=== PATIENT | female | born 1965 | race Caucasian/White ===

== ENCOUNTER 2020-11-01 07:45 | Emergency (ER) | payer BC ==
[2020-11-01 07:56] VITALS: RESP 18
[2020-11-01 08:32] LABS: Basophils # (A) 0.1 k/uL (0-0.2); Basophils % (A) 1 %; Eosinophils # (A) 1.1 k/uL (0-0.7); Eosinophils % (A) 13 %; HCT 37.8 % (34.0-46.0); HGB 12.8 gm/dL (11.4-16.0); Lymphocytes # (A) 1.4 k/uL (1.0-4.8); Lymphocytes % (A) 16 %; MCHC 33.8 g/dL (31.0-37.0); MCV 85.6 fL (80.0-100.0); Mean Platelet Volume 7.2; Monocytes # (A) 0.4 k/uL (0-1.0); Monocytes % (A) 4 %; Neutrophils # (A) 5.7 k/uL (1.3-7.7); Neutrophils % (A) 64 %; Platelet Count 445 k/uL (150-450); RBC 4.41 m/uL (3.80-5.40); RDW 13.3 % (11.5-15.5); WBC 8.9 k/uL (3.8-10.6)
--- NOTE | 2020-11-01 08:37 | XR ---
EXAMINATION TYPE: XR chest 2V DATE OF EXAM: 11/01/2020 COMPARISON: NONE HISTORY: Productive cough. TECHNIQUE: Frontal and lateral views of the chest are obtained. FINDINGS: There is elevated left hemidiaphragm with irregular left hilar masslike consolidation exte nding anteriorly. Silhouetting left heart border noted. Right lung is clear. No pleural effusion or p neumothorax seen bilaterally. The cardiac silhouette size is likely within normal limits. Surgical clips throughout the left breast with asymmetric diminished size to left breast shadow noted. The oss eous structures are intact. IMPRESSION: As above. Possible left hilar pneumonic consolidation but underlying neoplasm needs to b e considered. Left-sided volume loss noted. Follow-up contrast chest CT is likely warranted.
--- NOTE | 2020-11-01 08:38 | XR ---
EXAMINATION TYPE: XR KUB DATE OF EXAM: 11/01/2020 8:31 AM CLINICAL HISTORY: Left lower quadrant and flank pain. TECHNIQUE: Two Upright KUB images of the abdomen are obtained. COMPARISON: None. FINDINGS: Gas is seen in nondistended stomach bubble. Scattered gas is seen in non-distended small umair wel loops. Gas and fecal material is seen in non-distended colon. There is no visceromegaly, pneumope ritoneum, or abnormal calcification appreciated. The lung bases are clear and the osseous structures are intact. IMPRESSION: Overall nonobstructive bowel gas pattern.
--- NOTE | 2020-11-01 08:41 | ED ---
General Adult HPI - General Chief complaint: Abdominal Pain Stated complaint: Abd pain Time Seen by Provider: 11/01/20 07:59 Source: patient, RN notes reviewed, old records reviewed Mode of arrival: ambulatory Limitations: no limitations - History of Present Illness Initial comments: 55-year-old female presenting for evaluation of left-sided flank and abdominal pain which is been present for approximately one month. Pain is constant in nature. Not associated with dysuria or hematuria. No change in bowel habits. No rectal bleeding. Pain does appear to be worse with movement. No fevers. Additionally patient quit smoking approximately one month ago and has had increased cough since that time. She does not have a primary care physician and was instructed to present to the emergency department for evaluation if symptoms persisted. She has had symptoms for at least one month. - Related Data Home Medications Medication Instructions Recorded Confirmed No Known Home Medications 11/01/20 11/01/20 Allergies Allergy/AdvReac Type Severity Reaction Status Date / Time codeine AdvReac Unknown Verified 11/01/20 09:48 Childhood Review of Systems ROS Statement: Those systems with pertinent positive or pertinent negative responses have been documented in the HPI. ROS Other: All systems not noted in ROS Statement are negative. Past Medical History Past Medical History: Cancer Additional Past Medical History / Comment(s): breast CA History of Any Multi-Drug Resistant Organisms: None Reported Past Surgical History: Breast Surgery Additional Past Surgical History / Comment(s): L lumpectomy Past Psychological History: No Psychological Hx Reported Smoking Status: Former smoker Past Alcohol Use History: None Reported Past Drug Use History: None Reported General Exam Limitations: no limitations General appearance: alert, in no apparent distress Head exam: Present: atraumatic, normocephalic Eye exam: Present: normal appearance, PERRL ENT exam: Present: normal exam Neck exam: Present: normal inspection Respiratory exam: Present: normal lung sounds bilaterally, rhonchi (Scattered rhonchi). Absent: respiratory distress, wheezes Cardiovascular Exam: Present: regular rate, normal rhythm GI/Abdominal exam: Present: soft. Absent: distended, tenderness, guarding, rebound, rigid Extremities exam: Present: normal inspection, normal capillary refill. Absent: pedal edema Back exam: Present: normal inspection, full ROM. Absent: CVA tenderness (R), CVA tenderness (L), vertebral tenderness Neurological exam: Present: alert, oriented X3, CN II-XII intact. Absent: motor sensory deficit Psychiatric exam: Present: normal affect, normal mood Skin exam: Present: warm, dry, intact. Absent: cyanosis, diaphoretic Course Vital Signs 11/01/20 07:51 Temperature 98.3 F Pulse Rate 80 Respiratory 18 Rate Blood Pressure 133/94 O2 Sat by Pulse 100 Oximetry Medical Decision Making - Medical Decision Making 55-year-old female with 2 complaints, left lower abdominal pain, and increased cough over the past one month. Workup reveals normal CBC, normal CMP, negative urinalysis. Patient did request chest x-ray which is performed for increased cough. This does show concerning left hilar mass. CT with contrast has been performed which confirms this mass and associated atelectasis. Measuring 3.2 x 2.1. I did discuss case with Dr. Estuardo reyna for pulmonology. He rec ommends close outpatient follow-up. Patient had previous breast cancer and did follow with oncology at that time. She is given referral to primary care, pulmonology, and oncology. She will return with any worsening or changing symptoms. - Lab Data Result diagrams: 11/01/20 08:14 11/01/20 08:14 Lab Results 11/01/20 11/01/20 11/01/20 Range/Units 08:14 08:14 08:14 WBC 8.9 (3.8-10.6) k/uL RBC 4.41 (3.80-5.40) m/uL Hgb 12.8 (11.4-16.0) gm/dL Hct 37.8 (34.0-46.0) % MCV 85.6 (80.0-100.0) fL MCH 29.0 (25.0-35.0) pg MCHC 33.8 (31.0-37.0) g/dL RDW 13.3 (11.5-15.5) % Plt Count 445 (150-450) k/uL MPV 7.2 Neutrophils % 64 % Lymphocytes % 16 % Monocytes % 4 % Eosinophils % 13 % Basophils % 1 % Neutrophils # 5.7 (1.3-7.7) k/uL Lymphocytes # 1.4 (1.0-4.8) k/uL Monocytes # 0.4 (0-1.0) k/uL Eosinophils # 1.1 H (0-0.7) k/uL Basophils # 0.1 (0-0.2) k/uL Sodium 138 (137-145) mmol/L Potassium 4.1 (3.5-5.1) mmol/L Chloride 104 (98-107) mmol/L Carbon Dioxide 25 (22-30) mmol/L Anion Gap 9 mmol/L BUN 12 (7-17) mg/dL Creatinine 0.81 (0.52-1.04) mg/dL Est GFR (CKD-EPI)AfAm >90 (>60 ml/min/1.73 sqM) Est GFR (CKD-EPI)NonAf 81 (>60 ml/min/1.73 sqM) Glucose 119 H (74-99) mg/dL Calcium 9.9 (8.4-10.2) mg/dL Total Bilirubin 0.6 (0.2-1.3) mg/dL AST 22 (14-36) U/L ALT 20 (4-34) U/L Alkaline Phosphatase 87 (38-126) U/L Total Protein 7.9 (6.3-8.2) g/dL Albumin 4.3 (3.5-5.0) g/dL Urine Color Light Yellow Urine Appearance Clear (Clear) Urine pH 6.0 (5.0-8.0) Ur Specific [place] 1.004 (1.001-1.035) Urine Protein Negative (Negative) Urine Glucose (UA) Negative (Negative) Urine Ketones Negative (Negative) Urine Blood Negative (Negative) Urine Nitrite Negative (Negative) Urine Bilirubin Negative (Negative) Urine Urobilinogen <2.0 (<2.0) mg/dL Ur Leukocyte Esterase Small H (Negative) Urine WBC 5 (0-5) /hpf Ur Squamous Epith Cells 1 (0-4) /hpf Disposition Clinical Impression: Lung mass Disposition: HOME SELF-CARE Condition: Fair Instructions (If sedation given, give patient instructions): Pulmonary Nodules (ED), Lung Cancer (DC) Additional Instructions: Your CAT scan of the chest did show a mass in the lung. This requires close outpatient follow-up. Please call the [facility] today for further evaluation. Is patient prescribed a controlled substance at d/c from ED?: No Referrals: None,Stated [Primary Care Provider] - 1-2 days Eben Marte MD [STAFF PHYSICIAN] - 1-2 days George Elliott MD [STAFF PHYSICIAN] - 1-2 days Jose Daniel Jack MD [STAFF PHYSICIAN] - 1-2 days Time of Disposition: 10:05
[2020-11-01 08:44] LABS: Appearance,Urine Clear (Clear); Bilirubin,Urine Negative (Negative); Blood,Urine Negative (Negative); Color,Urine Light Yellow; Glucose,Urine (UA) Negative (Negative); Ketones,Urine Negative (Negative); Leukocyte Esterase,Urine Small (Negative); Nitrite,Urine Negative (Negative); Protein,Urine Negative (Negative); Specific Gravity,Urine 1.004 (1.001-1.035); Squamous Epithelial Cell,Urine 1 /hpf (0-4); Urobilinogen,Urine <2.0 mg/dL (<2.0); WBC,Urine 5 /hpf (0-5)
[2020-11-01 08:49] LABS: ALT 20 U/L (4-34); AST 22 U/L (14-36); African American GFR (CKD) >90 (>60 ml/min/1.73 sqM); Albumin 4.3 g/dL (3.5-5.0); Alkaline Phosphatase 87 U/L (38-126); Anion Gap 9 mmol/L; Blood Urea Nitrogen 12 mg/dL (7-17); Calcium 9.9 mg/dL (8.4-10.2); Carbon Dioxide 25 mmol/L (22-30); Chloride 104 mmol/L (98-107); Glucose 119 mg/dL (74-99); Non-African American GFR(CKD) 81 (>60 ml/min/1.73 sqM); Potassium 4.1 mmol/L (3.5-5.1); Sodium 138 mmol/L (137-145); Total Bilirubin 0.6 mg/dL (0.2-1.3); Total Protein 7.9 g/dL (6.3-8.2)
[2020-11-01] MEDS ORDERED: RX INFO: IV CONTRAST WAS GIVEN 1 EACH MISC MISCELLANE PRN (08:52)
--- NOTE | 2020-11-01 09:26 | CT ---
EXAMINATION TYPE: CT chest w con DATE OF EXAM: 11/01/2020 COMPARISON: Chest x-ray earlier today. HISTORY: pneumonia vs mass, history of breast CA CT DLP: 332.3 mGycm. Automated Exposure Control for Dose Reduction was Utilized. TECHNIQUE: CT scan of the thorax is performed following with IV Contrast, patient injected with 100 mL of Isovue 300. FINDINGS: LUNGS: Corresponding to x-ray there is heterogeneous masslike consolidation from the anterior hilar r egion extending anteriorly and superiorly with left-sided volume loss, there is abrupt lingular bronc hial occlusion noted axial image 25 and coronal image 55. Suspect central obstructing 3.2 x 2.1 cm ma ss axial image 24 with post obstructive atelectasis as there are some vessels noted in the periphery from this area. Is right lung is predominantly clear and hyperexpanded with mild atelectatic change o r pleural thickening medial anterior base. No pleural effusion or pneumothorax is seen bilaterally. The tracheobronchial tree is patent. MEDIASTINUM: There are no greater than 1 cm hilar or mediastinal lymph nodes clearly seen. No cardi omegaly or pericardial effusion is seen. OTHER: Left axillary surgical clips along with medial left breast clips are present. IMPRESSION: As above. Probable neoplasm. Consider PET CT and/or bronchoscopy for tissue confirmatio n.
[2020-11-01 10:07] VITALS: BP 126/72; PULSE 74; TEMP 98.1
== END 2020-11-01 10:14 | disposition home or self-care (01) ==
LOC: EC 07:45
DX: R91.8 Other nonspecific abnormal finding of lung field (principal); R10.32 Left lower quadrant pain; R05 Cough; Z87.891 Personal history of nicotine dependence; Z85.3 Personal history of malignant neoplasm of breast; Z88.5 Allergy status to narcotic agent
CPT/HCPCS: 36415; 80053; 85025; 81001; 71046; 74018; 71260; 99285; Q9967

== ENCOUNTER 2020-11-02 10:48 | Day surgery (SDC) | payer BC ==
[2020-11-02] MEDS ORDERED: LACTATED RINGERS 1,000 ML IV ONE (11:33)
[2020-11-02] MEDS ORDERED: LIDOCAINE 1% (10MG/ML) FOR IV START INTRADERMA ONE (11:34)
[2020-11-02] MEDS ORDERED: ATROPINE SULFATE 0.4 MG/ML 1 ML VIAL ONE ×2 (11:42)
[2020-11-02] MEDS ORDERED: ATROPINE SULFATE 0.4 MG/ML 1 ML VIAL IM ONE (11:47)
[2020-11-02] MEDS ORDERED: PROPOFOL 10 MG/ML 20 ML VIAL IV ONE (12:28)
[2020-11-02] MEDS ORDERED: SUCCINYLCHOLINE CHLORIDE 100 MG/5 ML SYR IV ONE (12:28)
[2020-11-02 13:10] VITALS: TEMP 97.5
[2020-11-02 13:21] VITALS: RESP 16
[2020-11-02 14:14] VITALS: BP 104/71; PULSE 93
--- NOTE | 2020-11-02 15:00 | XR ---
EXAMINATION TYPE: XR chest 1V portable DATE OF EXAM: 11/02/2020 COMPARISON: 11/01/2020 INDICATION: Post left lung biopsy TECHNIQUE: Single frontal view of the chest is obtained. FINDINGS: The heart size is normal. The pulmonary vasculature is normal. Left perihilar mass is evident. Surgical clips are within the left axillary region. No pneumothorax i s evident. IMPRESSION: 1. No pneumothorax post biopsy. 2. Left perihilar mass
--- NOTE | 2020-11-02 16:33 | OP ---
OPERATIVE REPORT PULMONARY/CRITICAL CARE PROCEDURE NOTE: PROCEDURE: Bronchoscopy, airway examination, therapeutic lavage, BAL, brushes, left upper lobe, endobronchial biopsies, left upper lobe, and washes, left upper lobe. PREOPERATIVE DIAGNOSIS: Rule out lung cancer. POSTOPERATIVE DIAGNOSIS: Rule out lung cancer. ANESTHESIA PROVIDED: General anesthesia. The patient's procedure was done in room #1. There was informed consent and universal timeout. WEDDING PHOTOGRAPHER: Dr. Trinh. PROCEDURE DESCRIPTION: After the patient was adequately sedated and fully anesthetized, the bronchoscope was inserted through the bronchoscope adapter connected to the endotracheal tube. I did a quick evaluation of the right lung. Right upper lobe and its 3 segments, right middle lobe and its 2 segments and the right lower lobe and its 5 segments were all found to be normal. On the left side, the left lower lobe was normal. There was a large tumor obstructing the left upper lobe bronchus. This is when we did sampling. Initially we did biopsies. They were endobronchial biopsies. I did probably 7 or 8 biopsies of this area. Then we did washes and brushes of this area as well. Everything was under direct visualization. There was minimal bleeding. Before the bronchoscope was withdrawn I ensured that there was hemostasis. The patient tolerated the procedure well and was stable throughout the procedure. There was no immediate complication. The patient will be recovered. I will speak to the patient's . MMODL / IJN: [id number] /
[2020-11-02 20:17] LABS: Appearance,BF Bloody; Color,BF Red; Nucleated Cells, Body Fluid 111 /uL; RBC, Body Fluid 200000 /uL
[2020-11-02 20:19] LABS: Mononuclear WBC,Body Fluid 6 %; Polynuclear WBC,Body Fluid 93 %; Total Cells Counted,Body Fluid 100
[2020-11-03] MEDS ORDERED: LIDOCAINE 2% (PF) 20 MG/ML 5 ML VIAL INHALATION ONE (05:00)
[2020-11-03] MEDS ORDERED: ATROPINE SULFATE 0.4 MG/ML 1 ML VIAL IM ONE (05:00)
[2020-11-03] MEDS ORDERED: ALBUTEROL NEB (CONC) 2.5 MG/0.5 ML INHALATION ONE (05:00)
[2020-11-03] MEDS ORDERED: SODIUM CHLORIDE 0.9% 1,000 ML IV SCH (06:00)
[2020-11-03] MEDS ORDERED: LIDOCAINE VISCOUS 300 MG/15 ML CUP MUCOUS MEM ONE (06:00)
== END 2020-11-02 15:09 | disposition home or self-care (01) ==
LOC: ORWHC2ENDO 10:48
PROVIDERS: ATTEND Internal Medicine Critical Care Medicine
DX: C78.02 Secondary malignant neoplasm of left lung (principal); Z85.3 Personal history of malignant neoplasm of breast; Z88.5 Allergy status to narcotic agent; Z87.891 Personal history of nicotine dependence; Z92.3 Personal history of irradiation; Z82.49 Family history of ischemic heart disease and other diseases of the circulatory system
CPT/HCPCS: 88104; 88108; 88305; 89050; 88342; 87252; 88341; 87070; 87205; 87116; 87102; 87206; 71045; 31625; 31623; 31624; J0461; J0330; J2704; 87496; 87498; 87502; 87529; 87634; 87798

== ENCOUNTER → 2020-11-04 | Outpatient (CLI) | payer BC ==
--- NOTE | 2020-11-08 14:39 | PE ---
Nuclear medicine PET/CT HISTORY: R 91.1 solitary pulmonary nodule, initial Patient received 12.2 mCi F-18 FDG intravenously and delayed scanning was performed from the skull ba se to the mid thighs. Localization and attenuation correction CT scan was performed. Correlation to chest CT 11/01/2020 Chest and neck: The abnormal soft tissue density extending from the left hilum anteriorly in the left upper lobe is again seen, there is associated hypermetabolic uptake predominantly in the central asp ect adjacent to the left mainstem bronchus anterior margin, an oval area of uptake is present, SUV 12 .3. Postobstructive changes are likely present with mild uptake. There is no pleural or pericardial e ffusion. Surgical clips are present in left axilla, medial left breast region. Subpleural nodule nishant ures only 2 to 3 mm on axial image 82 in the left upper lobe. There is no axillary adenopathy, no cer vical or supraclavicular adenopathy. ABDOMEN: There is no adrenal mass or retroperitoneal adenopathy. No evident liver mass. Colonic inter position noted anterior to the liver. There is no suspicious uptake. There is no ascites. No pelvic a denopathy. Osseous structures show lytic lesion involving the third lumbar vertebral body anteriorly. There is a ssociated uptake present, SUV 14.4. 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
== END | disposition home or self-care (01) ==
LOC: RADPETMAIN 07:25
PROVIDERS: ATTEND Internal Medicine Critical Care Medicine
DX: C79.51 Secondary malignant neoplasm of bone (principal); R91.1 Solitary pulmonary nodule
CPT/HCPCS: 78815; A9552

== ENCOUNTER → 2020-11-22 | Outpatient (CLI) | payer BC ==
--- NOTE | 2020-11-23 02:36 | MR ---
EXAMINATION TYPE: MR lumbar spine wo/w con DATE OF EXAM: 11/22/2020 COMPARISON: PET CT scan 11/04/2020 HISTORY: LBP, BLE radic. Hx metastatic lung cancer. CONTRAST: Standard multiplanar, multisequence MRI departmental protocol utilizing 7.5 mL intravenous Gadavist g adolinium contrast. The lumbar vertebra have normal alignment. There is abnormal decreased signal on the T1 images throug hout the L3 vertebral body. There is some expansion of the body and some diffuse pathologic enhanceme nt with the contrast. There is posterior expansion into the spinal canal in the midline and towards t he left side with some narrowing of the lateral recess. Abnormal enhancement extends into the left si de pedicle of L3. There is slight biconcave compression deformity of the L3 vertebral body. The disc spaces overall are fairly well-maintained. IMPRESSION: Expansile enhancing destructive lesion involving the L3 vertebral body consistent with tumor that is probably expanded compared to the PET CT scan of 11/04/2020.
== END | disposition home or self-care (01) ==
LOC: RADMRIMAIN 15:50
PROVIDERS: ATTEND Radiology Radiation Oncology
DX: M48.8X6 Other specified spondylopathies, lumbar region (principal); C79.51 Secondary malignant neoplasm of bone; C34.12 Malignant neoplasm of upper lobe, left bronchus or lung; Z85.3 Personal history of malignant neoplasm of breast
CPT/HCPCS: 72158; A9585

== ENCOUNTER → 2020-11-23 | Outpatient (CLI) | payer BC ==
--- NOTE | 2020-11-23 17:27 | MR ---
EXAMINATION TYPE: MR brain wo/w con DATE OF EXAM: 11/23/2020 COMPARISON: None HISTORY: Hx metastatic lung cancer and malignant neoplasm of bone CONTRAST: Performed utilizing 7 mL intravenous Gadavist gadolinium contrast. TECHNIQUE: Multiplanar, multiecho imaging on a 3.0 Mayr magnet is performed through the brain. Stud y is performed within 24 hours of arrival to the hospital. The craniovertebral junction is normal. The pituitary is normal. Diffusion-weighted imaging is performed. No abnormal hyperintensity is present to suggest an acute i ntracranial infarct or acute ischemic change. There are multiple scattered punctate hyperintensities throughout the deep white matter including sub cortical, periventricular, brainstem. Chronic white matter ischemic changes most likely within the di fferential. Other etiologies could be considered. Ventricles and sulci are appropriate for the patient age. No suspicious enhancement is identified to suggest metastatic disease. IMPRESSIONS: 1. No suspicious abnormality to suggest metastatic neoplasm. 2. Multiple punctate white matter changes, most likely on the basis of chronic white matter ischemic change.
== END | disposition home or self-care (01) ==
LOC: RADMRIMAIN 15:51
PROVIDERS: ATTEND Radiology Radiation Oncology
DX: C34.12 Malignant neoplasm of upper lobe, left bronchus or lung (principal); C79.51 Secondary malignant neoplasm of bone; R90.89 Other abnormal findings on diagnostic imaging of central nervous system; Z85.3 Personal history of malignant neoplasm of breast
CPT/HCPCS: 70553; A9585

== ENCOUNTER → 2021-02-09 | Outpatient (CLI) | payer BC ==
--- NOTE | 2021-02-09 12:40 | MR ---
EXAMINATION TYPE: MR lumbar spine wo/w con DATE OF EXAM: 02/09/2021 COMPARISON: 11/22/2020 HISTORY: Back pain TECHNIQUE: T1 and T2 axial and sagittal images of the lumbar spine are submitted. FINDINGS: There is no abnormal signal seen within the visualized spinal cord or paraspinal soft tissu es. At L1-2 there is no disc herniation or canal stenosis. Mild broad-based central disc bulging. No fora mary encroachment. No Canal stenosis. At L2-3 there is there is progression of a compression fracture which is now completely resulting in percent retropulsion into reduction in diameter spinal canal greater on the left. There is left-sided foraminal encroachment. At L3-4 there is diffuse disc bulging and hypertrophic change of the facets and ligamentum flavum. Mo derate compression of the thecal sac and canal stenosis with bilateral foraminal encroachment greater on the left. At L4-5 there is degenerative disc disease with more advanced facet arthropathy and ligamentum flavum hypertrophy. Neural foramina remain patent. No Canal stenosis. At L5-S1 there is facet arthropathy with severe degenerative disc disease discogenic marrow changes. No canal stenosis or foraminal encroachment. No focal herniation. IMPRESSION: 1. There is progression of the fracture of L3 which is now a complete compression fracture with appro ximately 50-60% retropulsion greater paracentrally to the left resulting in canal stenosis L2-L3 and significant foraminal encroachment with likely compression of the left-sided exiting nerve root. Abno rmal marrow signal could been the basis of progressive recent compression fracture. Pathologic fractu re not excluded. 2. Disc bulging and foraminal encroachment with canal stenosis and facet arthropathy L3-L4 at least p artially secondary to the compression fracture in association with hypertrophic changes and disc bulg ing.
== END | disposition home or self-care (01) ==
LOC: RADMRIMAIN 11:03
PROVIDERS: ATTEND Internal Medicine Hematology & Oncology
DX: M48.061 Spinal stenosis, lumbar region without neurogenic claudication (principal); M51.26 Other intervertebral disc displacement, lumbar region; M47.816 Spondylosis without myelopathy or radiculopathy, lumbar region; S32.038A Other fracture of third lumbar vertebra, initial encounter for closed fracture; M53.86 Other specified dorsopathies, lumbar region; C34.12 Malignant neoplasm of upper lobe, left bronchus or lung
CPT/HCPCS: 72158; A9585

== ENCOUNTER → 2021-02-19 | Outpatient (CLI) | payer BC ==
[2021-02-19 09:16] LABS: African American GFR (CKD) >90 (>60 ml/min/1.73 sqM); Blood Urea Nitrogen 13 mg/dL (7-17); Non-African American GFR(CKD) >90 (>60 ml/min/1.73 sqM)
--- NOTE | 2021-02-19 10:08 | CT ---
EXAMINATION TYPE: CT chest w con DATE OF EXAM: 02/19/2021 COMPARISON: 11/01/2020 HISTORY: Lung CA CT DLP: 222.2 mGycm Automated exposure control for dose reduction was used. CONTRAST: CT scan of the chest is performed with IV Contrast, patient injected with 100 mL of Isovue 300. FINDINGS: LUNGS: Left suprahilar mass persists and measures 1.7 x 2.0 cm versus 3.2 x 2.1 cm previously. Post o bstructive volume loss and/or pneumonia persists although is much improved relative to the prior exam ination. New areas however of groundglass infiltrate are seen throughout both lung alejandra. MEDIASTINUM: There are no greater than 1 cm hilar or mediastinal lymph nodes. No pericardial effusi on is seen. Thoracic aorta is of normal caliber. The heart is not enlarged. Solid right adrenal nodu le redemonstrated. UPPER ABDOMEN: No significant abnormality appreciated. OTHER: No additional significant abnormality is seen. IMPRESSION: 1. Left suprahilar mass persists although is smaller in size. Post obstructive volume loss and/or pne umonia persists left upper lobe although is much improved relative to prior examination. 2. New areas of groundglass infiltrate throughout both lung alejandra may reflect underlying pneumonia o r Covid 19 pneumonia. Correlate clinically.
== END | disposition home or self-care (01) ==
LOC: RADCTMAIN 08:27
PROVIDERS: ATTEND Internal Medicine Hematology & Oncology
DX: C34.12 Malignant neoplasm of upper lobe, left bronchus or lung (principal); R91.8 Other nonspecific abnormal finding of lung field
CPT/HCPCS: 82565; 84520; 71260; 36415; Q9967

== ENCOUNTER 2021-05-18 21:03 | Inpatient (IN) | payer BC ==
--- NOTE | 2021-05-18 21:16 | ED ---
Lower Extremity Injury HPI - General Stated Complaint: Rt Femur Injury Time Seen by Provider: 05/18/21 21:05 Source: patient, EMS Mode of arrival: EMS Limitations: no limitations - History of Present Illness Initial Comments: 's patient is a 56-year-old woman who presents to be evaluated for right leg injury. The patient was at home and then attempted to go up one step from one room into another. She states she felt a pop and then was not able to bear any weight on her right leg and fell. On EMS arrival there appeared to be deformity to the right femur. The did give analgesia on the scene. Patient had a total of 200 g of fentanyl given. They placed the patient's right leg and traction splint. Patient transported here. On arrival she declines further analgesia. She denies any other injury. She did not strike her head or neck. No loss of consciousness. No chest, back, abdomen or other extremity pains. The patient does give history of previous lung cancer (Dx in November) with known bony metastases to the spine. She had completed chemotherapy followed by radiation therapy. MD Complaint: thigh injury -: minutes(s) Injury: Thigh: Right Type of Injury: other Place: home Severity: severe Improves With: immobilization Worsens With: weight bearing Context: fall Associated Symptoms: snap/pop sensation Treatments Prior to Arrival: splint - Related Data Home Medications Medication Instructions Recorded Confirmed Docusate [Colace] 100 mg PO DAILY 05/18/21 05/18/21 HYDROcodone/APAP 7.5-325MG [[place] 1 tab PO BID PRN 05/18/21 05/18/21 7.5-325] Previous Rx's Medication Instructions Recorded Aspirin 325 mg PO BID #60 tab 05/20/21 HYDROcodone/APAP 10-325MG [[place] 1 each PO Q6H PRN #28 tab 05/20/21 10] Allergies Allergy/AdvReac Type Severity Reaction Status Date / Time codeine AdvReac Unknown Verified 05/18/21 21:43 Childhood Review of Systems ROS Statement: Those systems with pertinent positive or pertinent negative responses have been documented in the HPI. ROS Other: All systems not noted in ROS Statement are negative. Constitutional: Denies: fever, chills, weakness Respiratory: Denies: cough, dyspnea Cardiovascular: Denies: chest pain, syncope Gastrointestinal: Denies: abdominal pain, nausea Genitourinary: Denies: dysuria, hematuria Musculoskeletal: Reports: as per HPI. Denies: back pain, arthralgia Skin: Denies: rash, lesions Neurological: Denies: headache, weakness Hematological/Lymphatic: Denies: easy bleeding Past Medical History Past Medical History: Cancer Additional Past Medical History / Comment(s): breast CA History of Any Multi-Drug Resistant Organisms: None Reported Past Surgical History: Breast Surgery Additional Past Surgical History / Comment(s): L lumpectomy Past Psychological History: No Psychological Hx Reported Smoking Status: Former smoker Past Alcohol Use History: None Reported Past Drug Use History: None Reported General Exam General appearance: alert, in no apparent distress Head exam: Present: atraumatic, normocephalic Eye exam: Present: normal appearance. Absent: scleral icterus, conjunctival injection Neck exam: Present: normal inspection, full ROM. Absent: tenderness Respiratory exam: Present: normal lung sounds bilaterally. Absent: respiratory distress, wheezes, rales, rhonchi, stridor, chest wall tenderness Cardiovascular Exam: Present: regular rate, normal rhythm, normal heart sounds. Absent: systolic murmur, diastolic murmur, rubs, gallop GI/Abdominal exam: Present: soft. Absent: distended, tenderness, guarding, rebound, rigid, mass Extremities exam: Present: normal capillary refill, other (There is a traction splint applied to the right leg. No obvious deformity while in the splint. There are good distal pulses, sensation and movement throughout the foot.). Absent: pedal edema, calf tenderness Neurological exam: Present: alert. Absent: motor sensory deficit Skin exam: Present: warm, dry, intact, normal color. Absent: rash Course Vital Signs 05/18/21 05/18/21 21:07 22:40 Temperature 97.9 F Pulse Rate 97 70 Respiratory 18 18 Rate Blood Pressure 111/86 117/68 O2 Sat by Pulse 96 98 Oximetry Medical Decision Making - Lab Data Result diagrams: 05/20/21 06:48 05/20/21 06:48 Lab Results 05/18/21 05/18/21 05/18/21 Range/Units 21:15 21:23 21:23 WBC 7.8 (3.8-10.6) k/uL RBC 4.03 (3.80-5.40) m/uL Hgb 11.8 (11.4-16.0) gm/dL Hct 34.6 (34.0-46.0) % MCV 85.7 (80.0-100.0) fL MCH 29.2 (25.0-35.0) pg MCHC 34.1 (31.0-37.0) g/dL RDW 15.8 H (11.5-15.5) % Plt Count 354 (150-450) k/uL MPV 6.9 Neutrophils % 83 % Lymphocytes % 6 % Monocytes % 6 % Eosinophils % 3 % Basophils % 0 % Neutrophils # 6.5 (1.3-7.7) k/uL Lymphocytes # 0.5 L (1.0-4.8) k/uL Monocytes # 0.4 (0-1.0) k/uL Eosinophils # 0.2 (0-0.7) k/uL Basophils # 0.0 (0-0.2) k/uL PT 11.0 (9.0-12.0) sec INR 1.0 (<1.2) APTT 21.4 L (22.0-30.0) sec Sodium (137-145) mmol/L Potassium (3.5-5.1) mmol/L Chloride (98-107) mmol/L Carbon Dioxide (22-30) mmol/L Anion Gap mmol/L BUN (7-17) mg/dL Creatinine (0.52-1.04) mg/dL Est GFR (CKD-EPI)AfAm (>60 ml/min/1.73 sqM) Est GFR (CKD-EPI)NonAf (>60 ml/min/1.73 sqM) Glucose (74-99) mg/dL Plasma Lactic Acid [place] (0.7-2.0) mmol/L Calcium (8.4-10.2) mg/dL Total Bilirubin (0.2-1.3) mg/dL AST (14-36) U/L ALT (4-34) U/L Alkaline Phosphatase (38-126) U/L Troponin I (0.000-0.034) ng/mL Total Protein (6.3-8.2) g/dL Albumin (3.5-5.0) g/dL Urine Color Urine Appearance (Clear) Urine pH (5.0-8.0) Ur Specific [place] (1.001-1.035) Urine Protein (Negative) Urine Glucose (UA) (Negative) Urine Ketones (Negative) Urine Blood (Negative) Urine Nitrite (Negative) Urine Bilirubin (Negative) Urine Urobilinogen (<2.0) mg/dL Ur Leukocyte Esterase (Negative) Urine RBC (0-5) /hpf Urine WBC (0-5) /hpf Ur Squamous Epith Cells (0-4) /hpf Amorphous Sediment (None) /hpf Urine Bacteria (None) /hpf Serum Alcohol mg/dL Blood Type Blood Type Confirm A Positive Blood Type Recheck Bld Type Recheck Status Antibody Screen Spec Expiration Date 05/18/21 05/18/21 05/18/21 Range/Units 21:23 21:23 21:23 WBC (3.8-10.6) k/uL RBC (3.80-5.40) m/uL Hgb (11.4-16.0) gm/dL Hct (34.0-46.0) % MCV (80.0-100.0) fL MCH (25.0-35.0) pg MCHC (31.0-37.0) g/dL RDW (11.5-15.5) % Plt Count (150-450) k/uL MPV Neutrophils % % Lymphocytes % % Monocytes % % Eosinophils % % Basophils % % Neutrophils # (1.3-7.7) k/uL Lymphocytes # (1.0-4.8) k/uL Monocytes # (0-1.0) k/uL Eosinophils # (0-0.7) k/uL Basophils # (0-0.2) k/uL PT (9.0-12.0) sec INR (<1.2) APTT (22.0-30.0) sec Sodium 135 L (137-145) mmol/L Potassium 4.0 (3.5-5.1) mmol/L Chloride 102 (98-107) mmol/L Carbon Dioxide 23 (22-30) mmol/L Anion Gap 10 mmol/L BUN 11 (7-17) mg/dL Creatinine 0.50 L (0.52-1.04) mg/dL Est GFR (CKD-EPI)AfAm >90 (>60 ml/min/1.73 sqM) Est GFR (CKD-EPI)NonAf >90 (>60 ml/min/1.73 sqM) Glucose 115 H (74-99) mg/dL Plasma Lactic Acid [place] (0.7-2.0) mmol/L Calcium 9.2 (8.4-10.2) mg/dL Total Bilirubin 0.1 L (0.2-1.3) mg/dL AST 20 (14-36) U/L ALT 12 (4-34) U/L Alkaline Phosphatase 98 (38-126) U/L Troponin I <0.012 (0.000-0.034) ng/mL Total Protein 6.8 (6.3-8.2) g/dL Albumin 3.9 (3.5-5.0) g/dL Urine Color Light Yellow Urine Appearance Clear (Clear) Urine pH 6.0 (5.0-8.0) Ur Specific [place] 1.012 (1.001-1.035) Urine Protein Negative (Negative) Urine Glucose (UA) Negative (Negative) Urine Ketones Negative (Negative) Urine Blood Negative (Negative) Urine Nitrite Negative (Negative) Urine Bilirubin Negative (Negative) Urine Urobilinogen <2.0 (<2.0) mg/dL Ur Leukocyte Esterase Moderate H (Negative) Urine RBC 2 (0-5) /hpf Urine WBC 28 H (0-5) /hpf Ur Squamous Epith Cells <1 (0-4) /hpf Amorphous Sediment Rare H (None) /hpf Urine Bacteria Rare H (None) /hpf Serum Alcohol <10 mg/dL Blood Type Blood Type Confirm Blood Type Recheck Bld Type Recheck Status Antibody Screen Spec Expiration Date 05/18/21 05/18/21 05/18/21 Range/Units 21:23 21:23 21:25 WBC (3.8-10.6) k/uL RBC (3.80-5.40) m/uL Hgb (11.4-16.0) gm/dL Hct (34.0-46.0) % MCV (80.0-100.0) fL MCH (25.0-35.0) pg MCHC (31.0-37.0) g/dL RDW (11.5-15.5) % Plt Count (150-450) k/uL MPV Neutrophils % % Lymphocytes % % Monocytes % % Eosinophils % % Basophils % % Neutrophils # (1.3-7.7) k/uL Lymphocytes # (1.0-4.8) k/uL Monocytes # (0-1.0) k/uL Eosinophils # (0-0.7) k/uL Basophils # (0-0.2) k/uL PT (9.0-12.0) sec INR (<1.2) APTT (22.0-30.0) sec Sodium (137-145) mmol/L Potassium (3.5-5.1) mmol/L Chloride (98-107) mmol/L Carbon Dioxide (22-30) mmol/L Anion Gap mmol/L BUN (7-17) mg/dL Creatinine (0.52-1.04) mg/dL Est GFR (CKD-EPI)AfAm (>60 ml/min/1.73 sqM) Est GFR (CKD-EPI)NonAf (>60 ml/min/1.73 sqM) Glucose (74-99) mg/dL Plasma Lactic Acid [place] 0.9 (0.7-2.0) mmol/L Calcium (8.4-10.2) mg/dL Total Bilirubin (0.2-1.3) mg/dL AST (14-36) U/L ALT (4-34) U/L Alkaline Phosphatase (38-126) U/L Troponin I (0.000-0.034) ng/mL Total Protein (6.3-8.2) g/dL Albumin (3.5-5.0) g/dL Urine Color Urine Appearance (Clear) Urine pH (5.0-8.0) Ur Specific [place] (1.001-1.035) Urine Protein (Negative) Urine Glucose (UA) (Negative) Urine Ketones (Negative) Urine Blood (Negative) Urine Nitrite (Negative) Urine Bilirubin (Negative) Urine Urobilinogen (<2.0) mg/dL Ur Leukocyte Esterase (Negative) Urine RBC (0-5) /hpf Urine WBC (0-5) /hpf Ur Squamous Epith Cells (0-4) /hpf Amorphous Sediment (None) /hpf Urine Bacteria (None) /hpf Serum Alcohol mg/dL Blood Type A Positive Blood Type Confirm Blood Type Recheck No Previous Record Bld Type Recheck Status CABO Indicated Antibody Screen NEGATIVE Spec Expiration Date 05/21/20212322 - EKG Data -: EKG Interpreted by Ak EKG shows normal: sinus rhythm, axis (Rightward axis), intervals (Normal), QRS complexes (Normal), ST-T waves (Normal) Rate: tachycardia (Rate 101) Disposition Clinical Impression: Femur fracture, right Disposition: ADMITTED IP TO THIS HOSP Condition: Good Is patient prescribed a controlled substance at d/c from ED?: No
[2021-05-18 21:40] LABS: Basophils % (A) 0 %; Eosinophils # (A) 0.2 k/uL (0-0.7); Eosinophils % (A) 3 %; HCT 34.6 % (34.0-46.0); HGB 11.8 gm/dL (11.4-16.0); Lymphocytes # (A) 0.5 k/uL (1.0-4.8); Lymphocytes % (A) 6 %; MCH 29.2 pg (25.0-35.0); MCHC 34.1 g/dL (31.0-37.0); MCV 85.7 fL (80.0-100.0); Mean Platelet Volume 6.9; Monocytes # (A) 0.4 k/uL (0-1.0); Monocytes % (A) 6 %; Neutrophils # (A) 6.5 k/uL (1.3-7.7); Neutrophils % (A) 83 %; Platelet Count 354 k/uL (150-450); RBC 4.03 m/uL (3.80-5.40); RDW 15.8 % (11.5-15.5); WBC 7.8 k/uL (3.8-10.6)
[2021-05-18 21:50] LABS: ALT 12 U/L (4-34); AST 20 U/L (14-36); African American GFR (CKD) >90 (>60 ml/min/1.73 sqM); Albumin 3.9 g/dL (3.5-5.0); Alcohol <10 mg/dL; Alkaline Phosphatase 98 U/L (38-126); Anion Gap 10 mmol/L; Blood Urea Nitrogen 11 mg/dL (7-17); Calcium 9.2 mg/dL (8.4-10.2); Carbon Dioxide 23 mmol/L (22-30); Chloride 102 mmol/L (98-107); Glucose 115 mg/dL (74-99); Non-African American GFR(CKD) >90 (>60 ml/min/1.73 sqM); Sodium 135 mmol/L (137-145); Total Bilirubin 0.1 mg/dL (0.2-1.3); Total Protein 6.8 g/dL (6.3-8.2)
[2021-05-18] MEDS ORDERED: HYDROmorphone 1 MG/ML 1 ML SYRINGE IVP STA (21:52)
[2021-05-18 21:59] LABS: Partial Thromboplastin Time 21.4 sec (22.0-30.0)
[2021-05-18] MEDS ORDERED: NALOXONE 0.4 MG/ML 1 ML VIAL IV PRN (22:04)
[2021-05-18] MEDS ORDERED: ONDANSETRON 4 MG/2 ML VIAL IVP PRN (22:04)
--- NOTE | 2021-05-18 22:05 | XR ---
EXAMINATION TYPE: XR pelvis AP view, XR femur RT DATE OF EXAM: 05/18/2021 COMPARISON: NONE HISTORY: 56-year-old female with pelvic pain and trauma TECHNIQUE: Single frontal pelvic radiograph and frontal lateral radiographs of the right femur FINDINGS: Generalized osteopenia noted. Pelvic radiograph: The lumbar spine and sacroiliac joints are partially obscured by bowel gas. There is large amount of stool in the colon. The hip joints are maintained with apparent rotation of the left femur which could be positional. The pubic symphysis and sacroiliac joints are grossly intact. Femoral radiographs: There is an acute fracture of the distal femur with medial displacement and angulation. Significant s oft tissue swelling noted around the fracture site. Evaluation of the knee joint is suboptimal due to external fixation devices. IMPRESSION: 1. No displaced fracture in the pelvis. 2. Acute displaced angulated fracture of the distal femoral shaft. 3. Apparent rotation of the left femoral head could be positional.
--- NOTE | 2021-05-18 22:28 | XR ---
EXAMINATION TYPE: XR chest 1V portable DATE OF EXAM: 05/18/2021 COMPARISON: 11/02/2020 HISTORY: Preop TECHNIQUE: Single view FINDINGS: There is some volume loss on the left side with heart and mediastinum shifted to the left s katie. There is some consolidation and atelectasis in the left midlung field. The right lung is clear. There is no heart failure. Heart size is normal. IMPRESSION: There is some masslike consolidation at the left pulmonary hilum with volume loss in the left hemithorax consistent with atelectasis. The volume loss has progressed compared to old exam. No heart failure.
[2021-05-18] MEDS: SODIUM CHLORIDE 0.9% 1,000 ML IV SCH (22:32)
[2021-05-18] MEDS: HYDROmorphone 1 MG/ML 1 ML SYRINGE IVP PRN (23:17)
[2021-05-19 00:01] LABS: Amorphous Sediment,Urine Rare /hpf; Appearance,Urine Clear (Clear); Bacteria,Urine Rare /hpf; Bilirubin,Urine Negative (Negative); Blood,Urine Negative (Negative); Color,Urine Light Yellow; Glucose,Urine (UA) Negative (Negative); Ketones,Urine Negative (Negative); Leukocyte Esterase,Urine Moderate (Negative); Nitrite,Urine Negative (Negative); Protein,Urine Negative (Negative); RBC,Urine 2 /hpf (0-5); Specific Gravity,Urine 1.012 (1.001-1.035); Squamous Epithelial Cell,Urine <1 /hpf (0-4); Urobilinogen,Urine <2.0 mg/dL (<2.0); WBC,Urine 28 /hpf (0-5)
[2021-05-19] MEDS: HYDROmorphone 0.5 MG/0.5 ML SYRINGE IVP PRN ×3 (00:33→10:05)
[2021-05-19] MEDS: HYDROmorphone 1 MG/ML 1 ML SYRINGE IVP PRN ×5 (02:53→19:56)
[2021-05-19] MEDS: SODIUM CHLORIDE 0.9% 1,000 ML IV SCH ×2 (05:34→17:40)
[2021-05-19] MEDS ORDERED: PANTOPRAZOLE 40 MG/10 ML VIAL IV SCH (09:00)
--- NOTE | 2021-05-19 09:38 | P.HPOR ---
History of Present Illness H&P Date: 05/19/21 Chief Complaint: Right thigh pain status post fall Patient's pleasant 56-year-old female who had presented to the emergency room via ambulance after sustaining an injury at home. She is going above one step and felt a click and pop in her right thigh and sudden pain and then fell to the floor. She had been having pain over the past couple weeks at her right thigh prior to her fall. She is acute right thigh pain and denies other injuries. She does have a significant history of metastatic lung cancer with history of metastases to her brain spine at L3 and now apparently at her right femur. The patient was found have a displaced right femur fracture which is likely pathologic. She was neurologically and neurovascularly intact. She denied other injuries. She had some antecedent pain over the past couple of weeks. She thought that she had some sciatica at her right thigh. She denies recent fevers chills or night sweats. She denies chest pain or shortness of breath. For her lung cancer she has been seeing Dr. Le and has been receiving radiation oncology at her lumbar spine. Review of Systems As stated per HPI. Her only complaint of pain currently is on her right thigh. She denies numbness [place] in her foot. She has any other pains. She denies any chest pain shortness of shortness of breath or any fevers. Past Medical History Past Medical History: Cancer Additional Past Medical History / Comment(s): breast CA. Lung CA. Bone CA. History of some metastasis at her L3 vertebrae which underwent radiation oncology several months ago History of Any Multi-Drug Resistant Organisms: None Reported Past Surgical History: Breast Surgery Additional Past Surgical History / Comment(s): L lumpectomy Past Anesthesia/Blood Transfusion Reactions: No Reported Reaction Past Psychological History: No Psychological Hx Reported Smoking Status: Former smoker Past Alcohol Use History: None Reported Past Drug Use History: None Reported Medications and Allergies Home Medications Medication Instructions Recorded Confirmed Type Docusate [Colace] 100 mg PO DAILY 05/18/21 05/18/21 History HYDROcodone/APAP 7.5-325MG [[place] 1 tab PO BID PRN 05/18/21 05/18/21 History 7.5-325] Allergies Allergy/AdvReac Type Severity Reaction Status Date / Time codeine AdvReac Unknown Verified 05/18/21 21:43 Childhood Physical Examination Osteopathic Statement: *. No significant issues noted on an osteopathic structural exam other than those noted in the History and Physical/Consult. Chest has good excursion deep inspection expiration abdomen soft nontender HEENT is no spinal hip traumatic - Fracture right femur Location of fracture: Right femur shaft Appearance: other (She is in [place]'s traction. There is no skin changes or temporalis. She has good pulses distally.) Compartments: soft (Compartments are soft. She has tenderness over her right thigh.) Distal extremity neurovascularly intact: Yes (She has good neurologic sense and pulses distally.) Proximal joint involvement: No (Her neck and spine are nontender to palpation and range of motion. ) Distal joint involvement: No (Her left lower extremity upper extremity is have good active and passive ra) Other injury: muscle injury: no, tendon injury: no, ligament injury: no, vascular injury: no, nerve injury: no Results - Labs Labs: Abnormal Lab Results - Last 24 Hours (Table) 05/18/21 05/18/21 05/18/21 Range/Units 21:23 21:23 21:23 RDW 15.8 H (11.5-15.5) % Lymphocytes # 0.5 L (1.0-4.8) k/uL APTT 21.4 L (22.0-30.0) sec Sodium (137-145) mmol/L Creatinine (0.52-1.04) mg/dL Glucose (74-99) mg/dL Total Bilirubin (0.2-1.3) mg/dL Ur Leukocyte Esterase Moderate H (Negative) Urine WBC 28 H (0-5) /hpf Amorphous Sediment Rare H (None) /hpf Urine Bacteria Rare H (None) /hpf 05/18/21 Range/Units 21:23 RDW (11.5-15.5) % Lymphocytes # (1.0-4.8) k/uL APTT (22.0-30.0) sec Sodium 135 L (137-145) mmol/L Creatinine 0.50 L (0.52-1.04) mg/dL Glucose 115 H (74-99) mg/dL Total Bilirubin 0.1 L (0.2-1.3) mg/dL Ur Leukocyte Esterase (Negative) Urine WBC (0-5) /hpf Amorphous Sediment (None) /hpf Urine Bacteria (None) /hpf H & H 05/18/21 Range/Units 21:23 Hgb 11.8 (11.4-16.0) gm/dL Hct 34.6 (34.0-46.0) % Coagulation 05/18/21 Range/Units 21:23 INR 1.0 (<1.2) Result Diagrams: 05/18/21 21:23 05/18/21 21:23 - Diagnostic results Hip x-ray: report reviewed, image reviewed (Had the right femoral shaft at the junction of the middle and distal third there is a 100% displaced femur fracture. There appears to be pathologic change at the site. There is no joint involvement. I do not see any other masses. Pelvic x-ray does not show any evidence of obvious mass.) Assessment and Plan Assessment: Right femur pathologic fracture, displaced neurologically intact History of metastatic lung cancer Right thigh pain status post fracture Inability to ambulate due to fracture Plan: Right femur pathologic fracture, displaced neurologically intact History of metastatic lung cancer Right thigh pain status post fracture Inability to ambulate due to fracture The patient is a new fracture at her right femur which appears to be pathologic. She will require stabilization to allow her mobilization and ambulation for her. She is being cleared by medicine. At the time of surgery wound we will be able to take femoral reamings for pathology specimen to be sent. She has had some antecedent pain over the past few weeks which likely was the impending pathologic fracture at her right femur. I discussed the issues with the metastasis as well as the injury and treatment options. We discussed treatment him conservative to surgical. I feel that the best treatment for her would be surgical intervention with intramedullary liliam ding. I discussed the risk of occasions alternatives and benefits including but not limited to risk of bleeding risk, risk of infection risk and need for further surgery risk of decreased loss of motion risk of nonunion malunion and hardware failure was explained to her I tried to answer questions best my ability healing which she and her family understand and they have elected to proceed with the surgical intervention as soon as possible. We will keep her nothing by mouth and plan for surgical intervention today.
--- NOTE | 2021-05-19 10:24 | P.CONS ---
History of Present Illness - Reason for Consult Preoperative clearance - History of Present Illness Patient is a pleasant 56-year-old female came in after a mechanical fall sustaining injury found to have a right hip fracture. 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 Patient is actively undergoing chemotherapy at this time. Patient is bit tachycardic but hyponatremic secondary to hypovolemia. Patient does have a history of smoking which she quit in month of October. Patient is fairly functional woman doesn't have any cardiac history EKG showed sinus tachycardia without any significant abnormalities. I was consulted for preoperative clearance. Patient denied any fever chills dysuria shortness of breath orthopnea paroxysmal nocturnal dyspnea. REVIEW OF SYSTEMS: CONSTITUTIONAL: No fever, no malaise, no fatigue. HEENT: No recent visual problems or hearing problems. Denied any sore throat. CARDIOVASCULAR: No chest pain, orthopnea, PND, no palpitations, no syncope. PULMONARY: No shortness of breath, no cough, no hemoptysis. GASTROINTESTINAL: No diarrhea, no nausea, no vomiting, no abdominal pain. NEUROLOGICAL: No headaches, no weakness, no numbness. HEMATOLOGICAL: Denies any bleeding or petechiae. GENITOURINARY: Denies any burning micturition, frequency, or urgency. MUSCULOSKELETAL/RHEUMATOLOGICAL: Low back pain and pain in the right hip ENDOCRINE: Denies any polyuria or polydipsia. The rest of the 14-point review of systems is negative. PHYSICAL EXAMINATION: GENERAL: The patient is alert and oriented x3, not in any acute distress. Well developed, well nourished. HEENT: Pupils are round and equally reacting to light. EOMI. No scleral icterus. No conjunctival pallor. Normocephalic, atraumatic. No pharyngeal erythema. No thyromegaly. CARDIOVASCULAR: S1 and S2 present. No murmurs, rubs, or gallops. PULMONARY: Chest is clear to auscultation, no wheezing or crackles. ABDOMEN: Soft, nontender, nondistended, normoactive bowel sounds. No palpable organomegaly. MUSCULOSKELETAL: Deferred to orthopedic surgery EXTREMITIES: No cyanosis, clubbing, or pedal edema. NEUROLOGICAL: Gross neurological examination did not reveal any focal deficits. SKIN: No rashes. Assessment and plan -Right femoral rheumatological fracture displaced: Patient is intermediate risk for surgery because of her smoking history and some emphysema on the chest x-ray along with lung cancer. Discussed with the patient patient is agreeable for surgery. DVT prophylaxis pain management as per primary service -Metastatic lung cancer metastases to vertebrae and multiple other bony metast asis metastases -Tachycardia secondary to pain and hypovolemia improving with IV fluids and pain management -While hypovolemic hyponatremia expected to improve with IV fluids patient is presently in normal saline which will be continued -DVT prophylaxis as per primary service Past Medical History Past Medical History: Cancer Additional Past Medical History / Comment(s): breast CA. Lung CA. Bone CA. History of some metastasis at her L3 vertebrae which underwent radiation oncology several months ago History of Any Multi-Drug Resistant Organisms: None Reported Past Surgical History: Breast Surgery Additional Past Surgical History / Comment(s): L lumpectomy Past Anesthesia/Blood Transfusion Reactions: No Reported Reaction Past Psychological History: No Psychological Hx Reported Smoking Status: Former smoker Past Alcohol Use History: None Reported Past Drug Use History: None Reported Medications and Allergies Home Medications Medication Instructions Recorded Confirmed Type Docusate [Colace] 100 mg PO DAILY 05/18/21 05/18/21 History HYDROcodone/APAP 7.5-325MG [[place] 1 tab PO BID PRN 05/18/21 05/18/21 History 7.5-325] Allergies Allergy/AdvReac Type Severity Reaction Status Date / Time codeine AdvReac Unknown Verified 05/18/21 21:43 Childhood Physical Exam Vitals: Vital Signs Temp Pulse Pulse Resp BP BP Pulse Ox 05/19/21 08:00 98.9 F 102 H 18 121/75 97 05/19/21 02:00 98.3 F 93 18 111/74 96 05/18/21 23:33 98.4 F 95 18 119/76 96 05/18/21 22:40 70 18 117/68 98 05/18/21 21:07 97.9 F 97 18 111/86 96 Intake and Output 05/18/21 05/19/21 05/19/21 22:59 06:59 14:59 Intake Total 1000 Output Total 1300 Balance -300 Intake: Intake, IV Titration 1000 Amount Sodium Chloride 0.9% 1, 1000 000 ml @ 125 mls/hr IV . Q8H [facility] Rx#:[id number] Output: Urine 1300 Uretheral ([place]) 300 Other: Weight 63.503 kg 63.503 kg Results CBC & Chem 7: 05/18/21 21:23 05/18/21 21:23 Labs: Abnormal Lab Results - Last 24 Hours (Table) 05/18/21 05/18/21 05/18/21 Range/Units 21:23 21:23 21:23 RDW 15.8 H (11.5-15.5) % Lymphocytes # 0.5 L (1.0-4.8) k/uL APTT 21.4 L (22.0-30.0) sec Sodium (137-145) mmol/L Creatinine (0.52-1.04) mg/dL Glucose (74-99) mg/dL Total Bilirubin (0.2-1.3) mg/dL Ur Leukocyte Esterase Moderate H (Negative) Urine WBC 28 H (0-5) /hpf Amorphous Sediment Rare H (None) /hpf Urine Bacteria Rare H (None) /hpf 05/18/21 Range/Units 21:23 RDW (11.5-15.5) % Lymphocytes # (1.0-4.8) k/uL APTT (22.0-30.0) sec Sodium 135 L (137-145) mmol/L Creatinine 0.50 L (0.52-1.04) mg/dL Glucose 115 H (74-99) mg/dL Total Bilirubin 0.1 L (0.2-1.3) mg/dL Ur Leukocyte Esterase (Negative) Urine WBC (0-5) /hpf Amorphous Sediment (None) /hpf Urine Bacteria (None) /hpf
[2021-05-19] MEDS ORDERED: fentaNYL (PF) 50 MCG/ML 2 ML AMP ONE (11:12)
[2021-05-19] MEDS ORDERED: MIDAZOLAM 2 MG/2 ML VIAL ONE (11:12)
[2021-05-19] MEDS ORDERED: LIDOCAINE 1% INJ 10MG/ML (20 ML MDV) ONE (11:12)
[2021-05-19] MEDS ORDERED: PHENYLEPHRINE-0.9% NACL SYG 1,000 MCG/10 ML SYRINGE ONE (11:12)
[2021-05-19] MEDS ORDERED: PROPOFOL 10 MG/ML 20 ML VIAL IV ONE (11:12)
[2021-05-19] MEDS ORDERED: HYDROmorphone (PF) 1 MG/ML ONE (11:12)
[2021-05-19] MEDS ORDERED: SUCCINYLCHOLINE CHLORIDE 100 MG/5 ML SYR IV ONE (11:12)
[2021-05-19] MEDS ORDERED: LACTATED RINGERS 1,000 ML IV ONE ×2 (11:17→14:13)
[2021-05-19] MEDS ORDERED: SODIUM CHLORIDE 0.9% 100 ML with ceFAZolin 2,000 MG IV ONE ×2 (11:42)
[2021-05-19] MEDS ORDERED: NALOXONE 0.4 MG/ML 1 ML VIAL IV PRN (13:25)
[2021-05-19] MEDS ORDERED: MAGNESIUM HYDROXIDE 2,400 MG/10 ML CUP PO PRN ×2 (13:25→13:28)
[2021-05-19] MEDS ORDERED: HYDROmorphone 0.5 MG/0.5 ML SYRINGE IVP PRN (13:25)
[2021-05-19] MEDS ORDERED: HYDROcodone/APAP 5-325MG 1 EACH TAB PO PRN (13:25)
[2021-05-19] MEDS ORDERED: BENZOCAINE/MENTHOL LOZENG 1 EACH LOZENGE MUCOUS MEM PRN (13:25)
[2021-05-19] MEDS ORDERED: traMADol 50 MG TAB PO PRN (13:28)
[2021-05-19] MEDS ORDERED: ONDANSETRON 4 MG/2 ML VIAL IVP PRN (13:28)
[2021-05-19] MEDS ORDERED: HYDROcodone/APAP 7.5-325MG 1 EACH TAB PO PRN (13:30)
--- NOTE | 2021-05-19 13:39 | P.OP ---
Date of Procedure: 05/19/21 Preoperative Diagnosis: Right femur shaft pathologic femur fracture Right thigh pain Postoperative Diagnosis: Same Anesthesia: GETA Pathology: other (Right femoral reamings sent to pathology) Condition: stable Disposition: PACU Description of Procedure: Preoperative diagnosis: Right femur shaft pathologic femur fracture Right thigh pain Postoperative diagnosis: Right femur shaft pathologic femur fracture Right thigh pain Procedure: Right femur intramedullary rodding Biopsy of right femur with intramedullary reamings Use of fluoroscopic guidance Closed reduction Surgeon: Dr. Dasilva Asst.: Jairo Fowler who is present that the entire the case persistence during positioning dissection exposure placement of hardware and closure Anesthesia: Gen. per Dr. Dr. Sawant Estimated blood loss: Approximately 200 mL Components implanted: [employer] InterTAN intramedullary long femoral liliam and femoral neck lag screw Disposition: To recovery room in good stable condition Operative indications The patient has history of metastatic lung cancer and yesterday sustained an injury where she was going up a small step and felt a pop in her right leg and had a fall. She has been having pain at her right thigh over the past couple of weeks and this severely worsened yesterday when she felt a pop and fell to the floor. She has history of metastasis at her lumbar spine and at her brain in the past. She has been seen oncology and radiation oncology as well. The patient sustained a injury and suffered a femoral shaft fracture with complete displacement and angulation of her femur which was displaced and angulated. We were involved in the case in regard to his hip fracture. There is obvious bony changes at the site of fracture. It was extra-articular. His at the junction of the middle distal third. After evaluation it was determined that they would be a candidate for right femur fixation and stabilization via surgical intervention. This would give them the best chance of mobilization and ambulation. I felt that a long intramedullary hip screw would do the best for protecting her entire femur. We discussed the range of treatment options from conservative to surgical. They elected proceed with surgical intervention. We answered their questions to the best of our ability healing which they can understand. They signed an informed consent. Operative summary After obtaining informed consent evaluation by anesthesia, preoperative evaluation and clearance for medical service, the patient was identified and prepped Coleman area and the surgical site was marked. There brought to the operating room where the given appropriate anesthesia by the anesthesia department in standard fashion without any complications. Once the anesthesia was established we were able to position the patient. The patient was placed on a fracture table with a well-padded perineal post. The operative side was placed in a foot cunningham stirrup which was well-padded well molded and placed in gentle in-line traction. The nonoperative leg was placed in a padded stirrup. C-arm was brought in and we performed a closed reduction technique at the hip. We are able to get good alignment good position of the femoral shaft fracture with gentle reduction techniques and traction utilizing the fracture table. It seemed apparent that there was bony changes at the site of the fracture likely representing pathologic fracture site. Once patient was well positioned lower extremity was prepped and draped in nor mal standard sterile fashion. An appropriate keystone protocol and timeout was completed and were able to proceed with surgery. He started point just proximal to the greater trochanter was established and a median incision approximately 2 inches in length approximately to the greater trochanter. I dissected down through the fascia and I was able to expose the tip of the greater trochanter. A sharp starting hole was established at the tip of the greater trochanter near the junction of the anterior and middle third. Positioning was confirmed with C-arm guidance. I was able to start the awl into the bone and then use a guidepin at the starting point establish down to the level of the lesser trochanter at the intramedullary space. I then used a starting reamer for the greater trochanter placed over the guidepin and reamed down appropriately under C-arm guidance. I was unable to place a guidepin into the intramedullary aspect of the femur. I passed the guidepin distally through the femoral shaft and across the fracture site appropriately and into the distal femur at the junction is of the metaphysis and diaphysis distally. We had good alignment and position at the fracture site. I then reamed appropriately to the appropriate length. All the reamings were sent to pathology for further evaluation of the resumed pathologic fracture. The positioning was confirmed on C-arm guidance. With the femur appropriately reamed I then chose the appropriate size intramedullary liliam which was connected to the appropriate jig. We measured the liliam appropriately. The patient does have somewhat anatomically small greater trochanter and femoral neck. The jig was checked for alignment. The area was copiously irrigated and suctioned dry and we're able place the liliam at intramedullary space through the starting hole appropriately. I was able to pass the liliam over the guidewire into the femoral shaft across the fracture into the distal femur and excellent alignment and position with excellent reduction of the fracture site. It was seated down for appropriate position to align the leg pain into the femoral neck and head. A second incision was established at the site for the placement of the lag screw area and the guide was established at the lateral aspect of the femur and a guidepin was drilled into the femoral neck and head and near center center position. With this appropriate alignment and position where a reamer over the guidepin making sure not to penetrate the articular surface. The position was confirmed on C-arm guidance in AP and lateral positions. With this established we were able to place the appropriate size lag screw after measuring. Lag screw was placed into the femoral neck and head good alignment good position with excellent bony purchase. It was appropriately aligned and we placed a locking screw through the liliam appropriately and checked that the position was established. I was able to drill and place the compression screw immediately adjacent and inferior to the lag screw for further stabilization in good alignment and position. With the area in good position able place a distal locking screw. We utilized th freehand technique for the distal locking screws 2 from a lateral to medial approach. a separate incision was made at the skin. Fluoroscopy was used with freehand placement at the distal locking screws 2 in each screw was placed in the lateral aspect of the femur and the distal locking screw hole was established through the femur and distal locking hole of the intramedullary liliam. It was measured appropriately and a distal locking screw was placed in good alignment and good position with excellent bony purchase. The position was checked to make sure it was through the appropriate hole in the intramedullary r od. With this established we're able to remove the jig completely from the liliam and final images were taken which showed excellent alignment and position of the hardware and the fracture. With the liliam in place and the fracture stable, although the incision sites were copiously irrigated and suctioned dry. Good hemostasis was maintained. Deep fascial layers were closed with #1 Vicryl. Subcu tissue was closed with 2-0 Vicryl. Subcuticular tissues closed with 3-0 Vicryl. Was are cleaned and dried with dressed wit Axelson blew Telfa for a force and tape. Drapes were broken down, the hip was held in stable position with the post being removed safely once the positioning was stabilized. The patient was then transferred back to their hospital bed being careful to maintain the hip and C-s pine alignment and airway. Once stable to patient was transferred back to the postanesthesia care unit to be readmitted for pain control and DVT prophylaxis medical management and monitoring and mobilization we will continue follow patient closely throughout their postoperative course.
[2021-05-19 14:35] LABS: Basophils % (A) 0 %; Eosinophils # (A) 0.1 k/uL (0-0.7); Eosinophils % (A) 1 %; HCT 38.7 % (34.0-46.0); HGB 11.9 gm/dL (11.4-16.0); Hypochromasia Slight; Lymphocytes # (A) 0.4 k/uL (1.0-4.8); Lymphocytes % (A) 4 %; MCH 27.2 pg (25.0-35.0); MCHC 30.8 g/dL (31.0-37.0); MCV 88.4 fL (80.0-100.0); Mean Platelet Volume 7.1; Monocytes # (A) 0.5 k/uL (0-1.0); Monocytes % (A) 5 %; Neutrophils # (A) 9.5 k/uL (1.3-7.7); Neutrophils % (A) 90 %; Platelet Count 364 k/uL (150-450); RBC 4.38 m/uL (3.80-5.40); RDW 15.9 % (11.5-15.5); WBC 10.6 k/uL (3.8-10.6)
--- NOTE | 2021-05-19 15:30 | XR ---
EXAMINATION TYPE: XR Hip Complete RT, FL guidance operating room DATE OF EXAM: 05/19/2021 Comparison: Pelvis 05/18/2021 Clinical History: 56-year-old female IM Nail Rt Hip Findings: Intraoperative fluoroscopy during anterograde intramedullary nail and hip screw fixation across the p atient's distal femoral shaft fracture. 5 images are provided. FLUOROSCOPY Fluoroscopy time of 3 minutes 56 seconds was used during right femur IM nail. 5 image/s document/s t he procedure. Impression: Intraoperative fluoroscopy as above.
[2021-05-19] MEDS: ASPIRIN 325 MG TAB PO SCH (20:04)
[2021-05-19] MEDS: HYDROcodone/APAP 10-325MG 1 EACH TAB PO PRN (23:02)
[2021-05-20] MEDS: SODIUM CHLORIDE 0.9% 1,000 ML IV SCH ×3 (04:02→16:18)
[2021-05-20] MEDS: HYDROcodone/APAP 10-325MG 1 EACH TAB PO PRN ×4 (05:01→23:13)
[2021-05-20] MEDS: HYDROmorphone 1 MG/ML 1 ML SYRINGE IVP PRN (08:40)
[2021-05-20] MEDS: SENNOSIDES-DOCUSATE SODIUM 1 EACH TAB PO SCH (08:45)
[2021-05-20] MEDS: ASPIRIN 325 MG TAB PO SCH ×2 (08:45→19:53)
[2021-05-20] MEDS: PANTOPRAZOLE 40 MG TABLET PO SCH (08:46)
[2021-05-20] MEDS: DOCUSATE 100 MG CAP PO SCH (11:07)
[2021-05-20 11:50] LABS: African American GFR (CKD) 123.6 (60.0-200.0); Calcium 7.8 mg/dL (8.7-10.3); Non-African American GFR(CKD) 106.7 (60.0-200.0); Potassium 3.6 mmol/L (3.5-5.5)
[2021-05-20 12:19] LABS: HCT 30.6 % (37.2-46.3); HGB 9.5 g/dL (12.0-15.0); MCH 27.9 pg (27.0-32.0); MCV 89.7 fL (80.0-97.0); Mean Platelet Volume 10.6 fL (9.5-12.2); Platelet Count 286 X 10*3/uL (140-440); RBC 3.41 X 10*6/uL (4.10-5.20); RDW 15.9 % (11.5-14.5); WBC 7.92 X 10*3/uL (4.50-10.00)
--- NOTE | 2021-05-20 12:54 | P.PN ---
Progress Note - Text Progress Note Date: 05/20/21 Orthopedics: History of present illness: Patient is a very pleasant 56-year-old female who is seen at bedside for further evaluation of her right femur. She underwent a right intramedullary liliam fixation of the right femur for her right femur shaft pathologic fracture performed yesterday, 05/19/2021. She has remained nonweightbearing on the right lower extremity. Postoperatively she feels she has had significant improvement of her right femur pain. She has been able to sit at the bedside. She is not requiring IV Dilaudid for pain control. She feels her pain has been controlled with oral Mosheim. She does feel she continues to improve she would be ready for discharge home tomorrow. She states her is building a ramp at home and obtaining a wheelchair. She alert he has a walker at home sustaining ambulation. She has no further complaints at the bedside. Patient is a former smoker. She is known have metastatic cancer and was treated several months ago for metastasis to her L3 vertebrae and underwent radiation oncology. She is known to have lung cancer and has follow-up with Dr. Le for treatment and evaluation. She followed with Dr. Lackey for interventional radiation treatment. Physical Exam: Patient is awake, alert, and oriented 3 Vital signs stable Good chest excursion with deep inspiration and expiration Abdomen soft nontender No signs or symptoms of DVT; no calf pain Optifoam dressings at the right hip and distal femur are clean, dry, and intact No erythema, significant bruising, or active drainage from the surgical sites Some mild pain on palpation over the right distal femur Coleman catheter remains intact Assessment: Status post right femur intramedullary nail fixation for pathological right femur fracture Right thigh pain History of metastatic lung cancer History of metastasis to L3 with radiation oncology treatment Plan: 1. Patient is status post right femur intramedullary nail fixation for pathologic right femur fracture. Following surgical intervention she has had significant improvement of her pain. She does continue to have some pain over the right distal thigh. Her pain is being well controlled with oral Mosheim. She has been able to sit at the bedside. She does remain strict nonweightbearing on the right lower extremity. We did discuss she could toe touch on the right lower extremity. She continues to improve, we will plan to discharge patient home tomorrow, 05/21/2021. Patient states she does have a walker at home. She is encouraged to use a walker to aid in ambulation. Patient also states her is building a ramp at home and obtaining a wheelchair to pointer helper in ambulation. Patient will continue with aspirin 325 mg twice a day. Prescription has been sent to the patient's pharmacy for aspirin 325 mg twice a day, dispensed #60, and should take this prescription until completion. MAPS has been reviewed today, 05/20/2021, with an Overall Overdose Risk Score of 230. An "Opiod Start Talking" Form has been signed and placed in the patient's chart. A prescription has been written for Mosheim 10 mg/325 mg 1 tablet every 6 hours as needed for pain, dispense #28. Prescription has been sent to the patient's pharmacy. 2. Patient will continue to be seen in exam by other medical providers including medicine 3. Patient will plan to follow-up with Dr. Le in oncology following discharge from the hospital
--- NOTE | 2021-05-20 13:35 | P.PN ---
Subjective Patient is a pleasant 56-year-old female came in after a mechanical fall sustaining injury found to have a right hip fracture. 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 Patient is actively undergoing chemotherapy at this time. Patient is bit tachycardic but hyponatremic secondary to hypovolemia. Patient does have a history of smoking which she quit in month of October. Patient is fairly functional woman doesn't have any cardiac history EKG showed sinus tachycardia without any significant abnormalities. I was consulted for preoperative clearance. Patient denied any fever chills dysuria shortness of breath orthopnea paroxysmal nocturnal dyspnea. 05/20/2021 Patient is status post right femur intramedullary nailing pain is well- controlled patient is most probably will be discharged tomorrow. Patient is passing gas didn't move her bowel yet. PHYSICAL EXAMINATION: GENERAL: The patient is alert and oriented x3, not in any acute distress. Well developed, well nourished. HEENT: Pupils are round and equally reacting to light. EOMI. No scleral icterus. No conjunctival pallor. Normocephalic, atraumatic. No pharyngeal erythema. No thyromegaly. CARDIOVASCULAR: S1 and S2 present. No murmurs, rubs, or gallops. PULMONARY: Chest is clear to auscultation, no wheezing or crackles. ABDOMEN: Soft, nontender, nondistended, normoactive bowel sounds. No palpable organomegaly. MUSCULOSKELETAL: Deferred to orthopedic surgery EXTREMITIES: No cyanosis, clubbing, or pedal edema. NEUROLOGICAL: Gross neurological examination did not reveal any focal deficits. SKIN: No rashes. Assessment and plan -Right femoral rheumatological fracture displaced: Status post intramedullary nailing -Metastatic lung cancer metastases to vertebrae and multiple other bony metastasis metastases -Tachycardia secondary to pain and hypovolemia improving with IV fluids and pain management -Mild hypovolemic hyponatremia, on IV fluids -DVT prophylaxis as per primary service Objective - Vital Signs Vital signs: Vital Signs Temp 98.1 F 05/20/21 07:53 Pulse 113 H 05/20/21 07:53 Resp 17 05/20/21 07:53 BP 101/58 05/20/21 07:53 Pulse Ox 95 05/20/21 08:05 Intake & Output 05/19/21 05/20/21 05/20/21 18:59 06:59 18:59 Intake Total 1100 Output Total 200 1900 Balance 900 -1900 Weight 63.503 kg Intake: IV 1100 Output: Urine 100 1900 Estimated Blood Loss 100 Other: Voiding Method Indwelling Catheter Indwelling Catheter Indwelling Catheter - Labs CBC & Chem 7: 05/20/21 06:48 05/20/21 06:48 Labs: Abnormal Lab Results - Last 24 Hours (Table) 05/19/21 05/20/21 05/20/21 Range/Units 14:14 06:48 06:48 RBC 3.41 L (4.10-5.20) X 10*6/uL Hgb 9.5 L (12.0-15.0) g/dL Hct 30.6 L (37.2-46.3) % MCHC 30.8 L 31.0 L (31.0-37.0) g/dL RDW 15.9 H 15.9 H (11.5-15.5) % Neutrophils # 9.5 H (1.3-7.7) k/uL Lymphocytes # 0.4 L (1.0-4.8) k/uL BUN 5.0 L (9.0-27.0) mg/dL Creatinine 0.5 L (0.6-1.5) mg/dL BUN/Creatinine Ratio 10.00 L (12.00-20.00) Ratio Glucose 205 H (70-110) mg/dL Calcium 7.8 L (8.7-10.3) mg/dL
[2021-05-20] MEDS ORDERED: Potassium Replacement Protocol 1 EACH MISC MISCELLANE PRN (15:39)
[2021-05-20] MEDS ORDERED: POTASSIUM CHLORIDE ER 20 MEQ TAB.ER PO SCH (16:00)
[2021-05-21] MEDS: HYDROcodone/APAP 10-325MG 1 EACH TAB PO PRN ×2 (05:04→11:33)
[2021-05-21] MEDS: SENNOSIDES-DOCUSATE SODIUM 1 EACH TAB PO SCH (07:29)
[2021-05-21] MEDS: PANTOPRAZOLE 40 MG TABLET PO SCH (07:29)
[2021-05-21] MEDS: DOCUSATE 100 MG CAP PO SCH (07:29)
[2021-05-21] MEDS: ASPIRIN 325 MG TAB PO SCH (07:29)
[2021-05-21 08:03] VITALS: BP 99/66; PULSE 108; RESP 18; TEMP 98.2
[2021-05-21 09:21] LABS: HCT 31.5 % (37.2-46.3); HGB 10.1 g/dL (12.0-15.0); MCH 28.4 pg (27.0-32.0); MCHC 32.1 g/dL (32.0-37.0); MCV 88.5 fL (80.0-97.0); Mean Platelet Volume 10.4 fL (9.5-12.2); Platelet Count 300 X 10*3/uL (140-440); RBC 3.56 X 10*6/uL (4.10-5.20); RDW 15.7 % (11.5-14.5); WBC 8.48 X 10*3/uL (4.50-10.00)
[2021-05-21 09:42] LABS: African American GFR (CKD) 116.4 (60.0-200.0); Anion Gap 12.7 mmol/L (4.00-12.00); Carbon Dioxide 23.3 mmol/L (21.6-31.8); Non-African American GFR(CKD) 100.5 (60.0-200.0); Potassium 4.4 mmol/L (3.5-5.5)
--- NOTE | 2021-05-21 10:29 | P.DS ---
Providers Date of admission: 05/18/21 22:04 Expected date of discharge: 05/21/21 Attending physician: Jose Dasilva Consults: 05/18/21 22:05 Consult Physician Urgent Consulting Provider: Teddy Portillo Consult Reason/Comments: medical management Do you want consulting provider notified?: Yes Primary care physician: Loco Lackey MD - Discharge Diagnosis(es) (1) Pathologic fx femur Current Visit: Yes Status: Acute (2) Right thigh pain Current Visit: Yes Status: Acute (3) History of lung cancer Current Visit: Yes Status: Acute (4) History of cancer metastatic to bone Current Visit: Yes Status: Acute Hospital Course: This is a pleasant 56-year-old female who presented with pathologic fracture of the right femur. She was admitted for further treatment and evaluation. She underwent a right femur intramedullary nail fixation for pathological right femur fracture. The patient tolerated the procedure well and did well postoperatively. Her pain has been well-controlled with oral Creswell. She does have some pain in her right distal thigh. She has been seen in exam by physical therapy who has been able to help her with transfer. She is happy with her progress postoperatively. She feels she is ready for discharge today. Condition on day of discharge stable. Patient will be discharged home. Patient was cleared preoperatively for surgery by Dr. Holliday. Patient currently denies any nausea, vomiting, fever, or chills. Patient is eating and voiding freely without difficulty. Patient may shower Optifoam dressing intact. Patient may remove Optifoam dressing in 3 days and shower without a dressing at that time. Patient should refrain from driving until at least after their first follow-up appointment in the office. Patient will remain strict nonweightbearing on right lower extremity. May toe-touch with the right lower extremity. He is encoura ged to elevate the right lower extremity may apply ice for comfort support as needed. Patient is encouraged to use a walker and/or wheelchair to aid in ambulation. Prescription for a wheelchair has been written, signed, and provided to case management will obtain the wheelchair for the patient. Patient will also be discharged home with home health services. Coleman catheter will be discontinued prior to discharge home. Patient will continue with aspirin 325 mg twice a day. Prescription has been sent to the patient's pharmacy for aspirin 325 mg twice a day, dispensed #60, and should take this prescription until completion. MAPS has been reviewed yesterdayday, 05/20/2021, with an Overall Overdose Risk Score of 230. An "Opiod Start Talking" Form has been signed and placed in the patient's chart. A prescription has been written for Creswell 10 mg/325 mg 1 tablet every 6 hours as needed for pain, dispense #28. Prescription has been sent to the patient's pharmacy. Family has picked up her medications from pharmacy. Patient's other medical diagnoses include metastatic lung cancer with metastasis to L3 and previously undergone radiology oncology treatment. Physical Exam on day of discharge: Patient is awake, alert, and oriented 3 Vital signs stable Good chest excursion with deep inspiration and expiration Abdomen soft nontender No signs or symptoms of DVT; no calf pain Optifoam dressings at the right hip and distal femur are clean, dry, and intact No erythema, significant bruising, or active drainage from the surgical sites Some mild pain on palpation over the right distal femur Coleman catheter remains intact Procedures: Status post right femur intramedullary nail fixation for pathological right femur fracture Patient Condition at Discharge: Stable Plan - Discharge Summary Discharge Rx Participant: Yes New Discharge Prescriptions: New HYDROcodone/APAP 10-325MG [Creswell 10] 1 each PO Q6H PRN #28 tab PRN Reason: Pain Aspirin 325 mg PO BID #60 tab No Action HYDROcodone/APAP 7.5-325MG [Creswell 7.5-325] 1 tab PO BID PRN PRN Reason: Pain Docusate [Colace] 100 mg PO DAILY Discharge Medication List Docusate [Colace] 100 mg PO DAILY 05/18/21 [History] HYDROcodone/APAP 7.5-325MG [Creswell 7.5-325] 1 tab PO BID PRN 05/18/21 [History] Aspirin 325 mg PO BID #60 tab 05/20/21 [Rx] HYDROcodone/APAP 10-325MG [Creswell 10] 1 each PO Q6H PRN #28 tab 05/20/21 [Rx] Follow up Appointment(s)/Referral(s): Jairo Miranda, WANDER [PHYSICIAN COTTON DISPATCHER] - 1 Week (Patient may follow-up with Jairo Miranda PA-C or Dr. John Dasilva at [facility] in 1 week following discharge. ) None,Stated [REFERRING] - 1-2 days Activity/Diet/Wound Care/Special Instructions: 1. Strict nonweightbearing on the right lower extremity; may toe-touch on the right lower extremity 2. Keep dressings at the right hip and distal femur clean, dry, and intact 3. Patient may shower with dressings intact 4. If dressings remain dry, patient may remove dressings in 72 hours and then may shower without dressings intact at that time 5. Patient is encouraged to elevate the right lower extremity and may apply ice for comfort support as needed 6. Patient is encouraged to use a walker and/or wheelchair to aid in ambulation as needed 7. Take medications as prescribed Discharge Disposition: HOME WITH HOME HEALTH SERVICES
[2021-05-21 11:29] VITALS: BMI 24.7
[2021-05-21] MEDS ORDERED: TAMSULOSIN 0.4 MG CAP.ER.24H PO STA (12:01)
--- NOTE | 2021-05-21 15:48 | P.PN ---
Subjective Progress Note Date: 05/21/21 Patient is a pleasant 56-year-old female came in after a mechanical fall sustaining injury found to have a right hip fracture. 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 Patient is actively undergoing chemotherapy at this time. Patient is bit tachycardic but hyponatremic secondary to hypovolemia. Patient does have a history of smoking which she quit in month of October. Patient is fairly functional woman doesn't have any cardiac history EKG showed sinus tachycardia without any significant abnormalities. I was consulted for preoperative clearance. Patient denied any fever chills dysuria shortness of breath orthopnea paroxysmal nocturnal dyspnea. 05/20/2021 Patient is status post right femur intramedullary nailing pain is well- controlled patient is most probably will be discharged tomorrow. Patient is passing gas didn't move her bowel yet. 05/21/2021 Patient is seen in follow-up status post right femur intramedullary nailing and is being closely monitored. She was able to work well with physical therapy today and had indwelling Coleman catheter removed and is due to void. Will add one-time dose of Flomax 0.4 mg. Patient to continue with orthopedic recommendations as far as rehab and limitations and does have a walker and was instructed to remain nonweightbearing of the right lower extremity. Discussed with the patient about elevating lower extremity while at rest and continuing to do in bed or chair exercises as instructed. Resources provided for patient to obtain a primary care physician as she does not currently have one. Patient reports the passing gas but denies bowel movement yet. Review of systems: Constitutional: No reports of fatigue, fever, or chills Cardiovascular: No reports of chest pain or palpitations Respiratory: No reports of shortness of breath or cough GI: No reports of nausea, vomiting, or diarrhea : No reports of dysuria or retention Neurovascular: reports some generalized weakness All medications have been reviewed Objective - Vital Signs Vital signs: Vital Signs Temp 98.2 F 05/21/21 07:09 Pulse 108 H 05/21/21 07:09 Resp 18 05/21/21 07:09 BP 99/66 05/21/21 07:09 Pulse Ox 96 05/21/21 07:09 Intake & Output 05/20/21 05/21/21 05/21/21 18:59 06:59 18:59 Intake Total 1435 Output Total 2450 900 Balance -1015 -900 Intake: IV 1075 Sodium Chloride 0.9% 1, 1025 000 ml @ 125 mls/hr IV . Q8H [facility] Rx#:[id number] ceFAZolin 2 gm In Sodium 50 Chloride 0.9% 50 ml @ 100 mls/hr IVPB Q8H [facility] Rx#: [id number] Oral 360 Output: Urine 2450 900 Other: Voiding Method Indwelling Catheter Indwelling Catheter - Exam GENERAL: The patient is alert and oriented x3, not in any acute distress. Well developed, well nourished. HEENT: Pupils are round and equally reacting to light. EOMI. No scleral icterus. No conjunctival pallor. Normocephalic, atraumatic. No pharyngeal erythema. No thyromegaly. CARDIOVASCULAR: S1 and S2 present. No murmurs, rubs, or gallops. PULMONARY: Chest is clear to auscultation, no rhonchi noted. Some mild expiratory wheezing noted ABDOMEN: Soft, nontender, nondistended, normoactive bowel sounds. No palpable organomegaly. MUSCULOSKELETAL: Deferred to orthopedic surgery EXTREMITIES: No cyanosis, clubbing, or pedal edema. NEUROLOGICAL: Gross neurological examination did not reveal any focal deficits. SKIN: No rashes. Right hip surgical sites are dressing is dry and intact with no surrounding redness noted. Some minimal swelling at the distal portion of the femur noted on exam - Labs CBC & Chem 7: 05/21/21 05:30 05/21/21 05:30 Labs: Abnormal Lab Results - Last 24 Hours (Table) 05/20/21 05/20/21 05/21/21 Range/Units 06:48 06:48 05:30 RBC 3.41 L 3.56 L (4.10-5.20) X 10*6/uL Hgb 9.5 L 10.1 L (12.0-15.0) g/dL Hct 30.6 L 31.5 L (37.2-46.3) % MCHC 31.0 L (32.0-37.0) g/dL RDW 15.9 H 15.7 H (11.5-14.5) % BUN 5.0 L (9.0-27.0) mg/dL Creatinine 0.5 L (0.6-1.5) mg/dL BUN/Creatinine Ratio 10.00 L (12.00-20.00) Ratio Glucose 205 H (70-110) mg/dL Calcium 7.8 L (8.7-10.3) mg/dL Assessment and Plan Assessment: -Right femoral rheumatological fracture displaced: Status post intramedullary nailing -Metastatic lung cancer metastases to vertebrae and multiple other bony metastases -Tachycardia secondary to pain and hypovolemia, improved -Mild hypovolemic hyponatremia, improved -DVT prophylaxis as per primary service Plan: Recommend continuing with current medications current symptomatic management. Patient was given multiple resources to establish with a primary care provider and instructed to follow-up with orthopedics outpatient. Patient continues to follow with oncology as well and will follow-up in the outpatient setting. White blood count is 8.48 and hemoglobin is stable at 10.1, sodium is 138 with a potassium of 4.4 and current creatinine is 0.6. Patient was able to work with physical therapy today and will be continuing with home care and states has multiple family members for help in the outpatient setting. Patient will continue on aspirin 325 mg twice daily and will follow-up closely with orthopedics. Will continue to monitor during hospitalization. Thank you for this consultation. Patient states she is being discharged today.
== END 2021-05-21 15:04 | disposition home health service (06) | DRG 481 ==
LOC: EC 21:03 → 4SSUR 22:04 → UNDODISIN 05-21 12:49
PROVIDERS: ADMIT Orthopaedic Surgery Orthopaedic Surgery of the Spine; ATTEND Orthopaedic Surgery Orthopaedic Surgery of the Spine
PROC: 0QS836Z Reposition Right Femoral Shaft with Intramedullary Internal Fixation Device, Percutaneous Approach (ICD-10-PCS; principal; 2021-05-19 11:00)
DX: M84.451A Pathological fracture, right femur, initial encounter for fracture (principal); C79.51 Secondary malignant neoplasm of bone; E87.1 Hypo-osmolality and hyponatremia; C34.90 Malignant neoplasm of unspecified part of unspecified bronchus or lung; E86.1 Hypovolemia; R00.0 Tachycardia, unspecified; Z79.82 Long term (current) use of aspirin; Y92.009 Unspecified place in unspecified non-institutional (private) residence as the place of occurrence of the external cause; W18.30XA Fall on same level, unspecified, initial encounter; Z87.891 Personal history of nicotine dependence; Z92.3 Personal history of irradiation; Z92.21 Personal history of antineoplastic chemotherapy; J43.9 Emphysema, unspecified; Z85.3 Personal history of malignant neoplasm of breast
CPT/HCPCS: 36415; 71045; 72170; 73502; 80048; 80053; 80320; 81001; 83605; 84484; 85025; 85027; 85610; 85730; 86850; 86900; 86901; 93005; 94760; 96374; 96376; 99285

== ENCOUNTER → 2021-06-01 | Outpatient (CLI) | payer BC ==
--- NOTE | 2021-06-04 09:25 | PE ---
EXAMINATION TYPE: PET CT fusion whole body DATE OF EXAM: 06/01/2021 COMPARISON: CT chest 02/19/2021 Prior PET/CT: None HISTORY: Lung cancer , history of breast cancer , bone metastases TECHNIQUE: Following the intravenous administration of 10.51 mCi of F-18 FDG, whole body images are performed from the skull base to the midthigh. Images are reviewed on the computer in the coronal, a xial, and sagittal planes. Reconstructed rotating images are created on independent workstation and reviewed on the computer. A localization and attenuation correction CT is performed in conjunction with the PET scan. DLP: 304.76 mGycm SCAN: Subsequent Scan Blood glucose: 83 mg/dL Average Mediastinum SUV: 1.76 Average Liver SUV: 2.21 FINDINGS: NECK: No abnormal uptake THORAX: There is a focus of radiotracer at the level of the left main pulmonary artery at the left hi lar region with an SUV value of 5.45 suspicious for metastatic lesion. ABDOMEN: There is intense activity at the bilateral adrenal glands. On the right this measures 5.39 on the left this measures 9.85. Adrenal glands are enlarged PELVIS: There is a focus of radiotracer accumulation at the distal periaortic region within the enlar ged lymph node with an SUV value of 6.73. OSSEOUS STRUCTURES: There is intense activity at the level of the lower stem of the right hip pin. Th ere has been recent placement of a medullary liliam for fracture pathologic fracture should be considere d. LOCALIZATION CT: There is some fullness of the right thyroid lobe with some hypodensity near the infe rior aspect. Consider additional workup with ultrasound. Consolidation within the left infrahilar reg ion is again evident. Bilateral adrenal glands are enlarged. This measures 4.4 x 3.1 cm on the left a nd 5.7 x 3.4 cm on the right. The enlarged lymph node at the distal periaortic region is a transverse dimension 1.4 cm. COMPARISON: Consolidation appears larger than the comparison of February 19, 2021. Adrenal gland enlargem ent is an interval finding. IMPRESSION: 1. Focal radiotracer in the left perihilar region suspicious for metastatic lymph node. 2. Enlarged bilateral adrenal glands with intense activity suspicious for metastatic disease. 3. Enlarged lymph node with elevated SUV distal periaortic region within the pelvis suspicious for me tastatic disease. 4. Intense activity at the acute fracture distal femur. Pathologic fracture should be considered. 5. Fullness within the right thyroid lobe with some hypodensity inferior right thyroid lobe. Consider additional workup with ultrasound. 6. Left perihilar consolidation is increasing over the interval.
== END | disposition home or self-care (01) ==
LOC: RADPETMAIN 17:04
PROVIDERS: ATTEND Internal Medicine Hematology & Oncology
DX: C34.12 Malignant neoplasm of upper lobe, left bronchus or lung (principal)
CPT/HCPCS: 78816; A9552